=== PATIENT | female | born 1990 | race Caucasian/White ===

== ENCOUNTER 2021-07-19 15:35 | Emergency (ER) | payer OTHER ==
--- OUTSIDE RECORDS SUMMARY | 2021-07-19 15:39 | XMS REPORT | Continuity of Care Document ---
:1990 Author Organization [facility] t Address [address] [place] [address] Dr. Lang [address] [place] [address] Care Team Providers Name Role Phone Unavailable Unavailable Unavailable Problems This patient has no known problems. Allergies, Adverse Reactions, Alerts This patient has no known allergies or adverse reactions. Medications This patient has no known medications. Procedures This patient has no known procedures. Encounters Start End Encounter Admission Attending Care Care Encounter Source Date/Time Date/Time Type Type Clinicians Facility Department ID 2021-07-14 Outpatient [facility] [id number] NE 11:28:09 [id number] Health Results This patient has no known results.
[2021-07-19 16:49] LABS: Absolute Lymphocytes (CBC) 2.3 K/uL (0.7-4.9); Hematocrit 44.9 % (36.0-45.0); Lymphocytes % 17.5 % (15.3-44.8); MPV 9.1 fL (7.6-11.3); RBC Red Blood Cell Count 5.02 M/uL (3.86-4.86)
[2021-07-19 16:53] LABS: Albumin 4.1 g/dL (3.4-5.0); Bilirubin Total 0.4 mg/dL (0.2-1.0); Potassium 3.6 mmol/L (3.5-5.1); Protein, Total 7.7 g/dL (6.4-8.2)
[2021-07-19 17:00] LABS: Urine Bacteria 20-50 /HPF (<20); Urine RBC 20-50 /HPF (NONE SEEN)
--- NOTE | 2021-07-19 17:11 | RAD REPORT ---
EXAM DESCRIPTION: CT - Stone Protocol - 07/19/2021 5:02 pm CLINICAL HISTORY: Flank pain. hematuria, right flank pain COMPARISON: No comparisons TECHNIQUE: Axial images were obtained without oral or IV contrast. Lack of contrast limits solid org an and vascular assessment. The [id number] spans the entirety of the system partially obscuring uppermost abdomen and lung bases. Coronal reformatted images were obtained and reviewed. All CT scans are performed using dose optimization technique as appropriate and may include automated exposure control or mA/KV adjustment according to patient size. FINDINGS: The lower lung sarah are clear. Imaged portions of the liver and spleen show no suspicious findings on non-contrast imaging. The panc reas and adrenal glands are normal. No pathologic lymphadenopathy in the abdomen or pelvis. No urinary tract stones or obstructive uropathy. No bowel obstruction, free air, free fluid or abscess. Normal appendix noted. No significant bony abnormality. 3 cm left ovarian follicle. IMPRESSION: No urinary tract stones or obstructive uropathy.
[2021-07-19] MEDS ORDERED: CEFTRIAXONE 1000 MG/VIAL ONE (17:54)
[2021-07-19] MEDS ORDERED: KETOROLAC 30 MG/ML INJ ONE (17:54)
[2021-07-19] MEDS ORDERED: LIDOCAINE 4% PATCH ONE (17:54)
--- NOTE | 2021-07-19 18:00 | EDPHYS ---
Physician Documentation [facility] Name: Ai Hernandez Age: 31 yrs Sex: Female : 1990 Arrival Date: 07/19/2021 Time: 15:40 Bed 10 Private MD: ED Physician Ezequiel Bowie HPI: 07/19 16:30 This 31 yrs old Female presents to ER via Ambulatory with complaints of Urinary Problem.cp 16:30 The patient complains of pain in the right mid/low back. The pain radiates to the back cp of right leg down to knee. 16:30 Onset: The symptoms/episode began/occurred 2 day(s) ago. Associated signs and symptoms: cp Pertinent positives: noticed blood in urine since 2 this morning, Pertinent negatives: diarrhea, dysuria, fever, vomiting. Severity of pain: in the emergency department the pain is unchanged despite home interventions. 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 - Social history:: Smoking status: Patient denies any tobacco usage or history of. Patient/guardian denies using alcohol, street drugs. ROS: 16:35 Constitutional: Negative for body aches, chills, fever, poor PO intake. cp 16:35 Eyes: Negative for injury, pain, redness, and discharge. cp 16:35 Neck: Negative for pain with movement, pain at rest, stiffness, tenderness, bony tenderness. 16:35 Cardiovascular: Negative for chest pain, palpitations. 16:35 Respiratory: Negative for cough, shortness of breath, wheezing. 16:35 Abdomen/GI: Negative for abdominal pain, nausea, vomiting, and diarrhea, constipation, bowel incontinence. 16:35 Back: Positive for pain at rest, pain with movement, of the right mid and right low back, Negative for injury or acute deformity. 16:35 : Positive for hematuria, Negative for urinary frequency, pelvic pain, vaginal bleeding. 16:35 Skin: Negative for rash. 16:35 Neuro: Negative for altered mental status, headache, numbness, weakness. 16:35 All other systems are negative. Exam: 16:40 Constitutional: The patient appears in no acute distress, alert, awake, non-toxic, well cp developed, well nourished, uncomfortable. 16:40 Head/Face: Normocephalic, atraumatic. cp 16:40 Neck: ROM/movement: is normal, is supple, without pain, no range of motions limitations. 16:40 Chest/axilla: Inspection: normal. 16:40 Cardiovascular: Rate: normal, Rhythm: regular. 16:40 Respiratory: the patient does not display signs of respiratory distress, Respirations: normal, no use of accessory muscles, no retractions, labored breathing, is not present, Breath sounds: are clear throughout, no decreased breath sounds, no stridor, no wheezing. 16:40 Abdomen/GI: Inspection: abdomen appears normal, Bowel sounds: active, all quadrants, Palpation: abdomen is soft and non-tender, in all quadrants. 16:40 Back: pain, that is moderate, of the right mid back and right low back, ROM is painful, with all movement, Straight leg raises: of both lower extremities does not illicit pain. 16:40 Neuro: Motor: moves all fours, strength is normal, Sensation: is normal, Deep tendon reflexes are 2+ (normal) in the right patellar, right Achilles, left patellar and left Achilles. Vital Signs: 16:03 BP 112 / 85; Pulse 100; Resp 16; Temp 99.1(O); Pulse Ox 99% on R/A; Weight 57.15 kg jb4 (R); Height 5 ft. 1 in. (154.94 cm) (R); Pain 3/10; 16:03 Body Mass Index 23.81 (57.15 kg, 154.94 cm) jb4 MDM: 17:00 Differential diagnosis: nephrolithiasis, pyelonephritis, UTI, sciatica, bulging disc, cp spinal stenosis. 17:22 Patient medically screened. cp 17:59 Data reviewed: vital signs, nurses notes, lab test result(s), radiologic studies, CT cp scan. 17:59 Counseling: I had a detailed discussion with the patient and/or guardian regarding: the cp historical points, exam findings, and any diagnostic results supporting the discharge/admit diagnosis, lab results, radiology results, the need for outpatient follow up, a family practitioner, to return to the emergency department if symptoms worsen or persist or if there are any questions or concerns that arise at home. Response to treatment: the patient's symptoms have mildly improved after treatment, and as a result, I will discharge patient. 07/19 16:20 Order name: Urine Microscopic Only; Complete Time: 17:37 cp 07/19 17:37 Interpretation: Normal except: UWBC 20-50; URBC 20-50; UBACT 20-50; SQEPI 5-10. cp 07/19 16:20 Order name: CBC with Diff; Complete Time: 17:37 cp 07/19 16:20 Order name: CMP; Complete Time: 17:37 cp 07/19 16:20 Order name: Lipase; Complete Time: 17:37 cp 07/19 17:03 Order name: Urine Culture EDMS 07/19 16:20 Order name: Urine Dipstick-Ancillary (obtain specimen); Complete Time: 16:53 cp 07/19 16:20 Order name: Urine Test (obtain specimen); Complete Time: 16:53 cp 07/19 16:20 Order name: IV Saline Lock; Complete Time: 17:08 cp 07/19 16:20 Order name: Labs collected and sent; Complete Time: 17:08 cp 07/19 16:20 Order name: CT Stone Protocol; Complete Time: 17:37 cp Administered Medications: 17:56 Drug: Ketorolac 15 mg Route: IVP; Site: right antecubital; iw 18:15 Follow up: Response: No adverse reaction aa5 17:56 Drug: Rocephin (cefTRIAXone) 1 grams Route: IV; Rate: calculated rate; Site: right iw antecubital; 18:15 Follow up: Response: No adverse reaction; IV Status: Completed infusion aa5 17:57 Drug: Lidoderm Patch 5 % (700 mg/patch) 1 patches Route: Topical; Site: affected area; iw Disposition: 18:49 Co-signature as Attending Physician, Ezequiel Bowie MD. rn Disposition Summary: 07/19/21 17:59 Discharge Ordered Location: Home cp Problem: new cp Symptoms: have improved cp Condition: Stable cp Diagnosis - Sciatica, right side cp - UTI/ Urinary tract infection, site not specified cp Followup: cp - With: Private Physician - When: 2 - 3 days - Reason: Worsening of condition Discharge Instructions: - Discharge Summary Sheet cp - Sciatica cp - Urinary Tract Infection, Adult cp Forms: - Medication Reconciliation Form cp - Thank You Letter cp - Antibiotic Education cp - Prescription Opioid Use cp Prescriptions: - Lidoderm 5 % Topical adhesive patch,medicated - apply 1 patch by TOPICAL route once daily; 20 patch; Refills: 0, Product cp Selection Permitted - Ibuprofen 600 mg Oral Tablet - take 1 tablet by ORAL route every 8 hours As needed take with food; 30 tablet; cp Refills: 0, Product Selection Permitted - Cyclobenzaprine 10 mg Oral Tablet - take 1 tablet by ORAL route every 8 hours As needed; 20 tablet; Refills: 0, cp Product Selection Permitted - Bactrim DS 800-160 mg Oral Tablet - take 1 tablet by ORAL route every 12 hours for 7 days; 14 tablet; Refills: 0, cp Product Selection Permitted Signatures: Dispatcher [employer] Lori Peacock RN RN iw Nieto, Roman, MD MD rn Page, Corey, PA PA cp Sudarshan Hull RN RN jb4 Jeanne Schneider RN aa5 Corrections: (The following items were deleted from the chart) 16:45 16:38 URINALYSIS+U.LAB.BRZ ordered. EDNY EDMS
--- NOTE | 2021-07-19 18:00 | ER ---
Nurse's Notes [facility] Name: Ai Hernandez Age: 31 yrs Sex: Female : 1990 Arrival Date: 07/19/2021 Time: 15:40 Bed 10 Private MD: Diagnosis: Sciatica, right side;UTI/ Urinary tract infection, site not specified Presentation: 07/19 16:03 Chief complaint: Patient states: At 2 pm I started urinating blood with clots. I am jb4 having right thigh pain that started 2 days ago along with right lower back pain. Coronavirus screen: At this time, the client does not indicate any symptoms associated with coronavirus-19. Ebola Screen: No symptoms or risks identified at this time. Initial Sepsis Screen: Does the patient meet any 2 criteria? HR > 90 bpm. Yes Does the patient have a suspected source of infection? No. Patient's initial sepsis screen is negative. Risk Assessment: Do you want to hurt yourself or someone else? Patient reports no desire to harm self or others. Onset of symptoms was July 19, 2021. Transition of care: patient was not received from another setting of care. 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 - Social history:: Smoking status: Patient denies any tobacco usage or history of. Patient/guardian denies using alcohol, street drugs. Screenin:57 Abuse screen: Denies threats or abuse. Denies injuries from another. Nutritional iw screening: No deficits noted. Tuberculosis screening: No symptoms or risk factors identified. Fall Risk None identified. Assessment: 17:57 Reassessment: Patient appears in no apparent distress at this time. Patient and/or iw family updated on plan of care and expected duration. Pain level reassessed. Patient is alert, oriented x 3, equal unlabored respirations, skin warm/dry/pink. Patient states symptoms have improved. 18:15 Reassessment: Patient is alert, oriented x 3, equal unlabored respirations, skin aa5 warm/dry/pink. Vital Signs: 16:03 BP 112 / 85; Pulse 100; Resp 16; Temp 99.1(O); Pulse Ox 99% on R/A; Weight 57.15 kg jb4 (R); Height 5 ft. 1 in. (154.94 cm) (R); Pain 3/10; 16:03 Body Mass Index 23.81 (57.15 kg, 154.94 cm) jb4 ED Course: 15:40 Patient arrived in ED. mr 16:02 Roger Flores PA is PHCP. cp 16:02 Ezequiel Bowie MD is Attending Physician. cp 16:08 Triage completed. jb4 16:08 Arm band placed on right wrist. jb4 17:04 CT Stone Protocol In Process Unspecified. EDMS 18:15 Lori Oscar, RN is Primary Nurse. iw 18:15 No provider procedures requiring assistance completed. Patient did not have IV access aa5 during this emergency room visit. Administered Medications: 17:56 Drug: Ketorolac 15 mg Route: IVP; Site: right antecubital; iw 18:15 Follow up: Response: No adverse reaction aa5 17:56 Drug: Rocephin (cefTRIAXone) 1 grams Route: IV; Rate: calculated rate; Site: right iw antecubital; 18:15 Follow up: Response: No adverse reaction; IV Status: Completed infusion aa5 17:57 Drug: Lidoderm Patch 5 % (700 mg/patch) 1 patches Route: Topical; Site: affected area; iw Outcome: 17:59 Discharge ordered by MD. cp 18:15 Discharged to home ambulatory. aa5 18:15 Condition: stable 18:15 Discharge instructions given to patient, Instructed on discharge instructions, follow up and referral plans. medication usage, Demonstrated understanding of instructions, follow-up care, medications, Prescriptions given X 4. 18:20 Patient left the ED. aa5 Addendum: 07/22/2021 11:54 Addendum: Culture Results: Positive urine culture. Bacteria is resistant to, has a a5 intermediate sensitivity, or is not tested against prescribed antibiotics. Report given to PENNY for further evaluation and then to internal communications manager for follow up with patient. Prescription called-in to pharmacy of choice. to [facility] pharmacy in [place]. Called in Macrobid 100mg PO BID x 7 days per BRIJESH Lemus. Signatures: Dispatcher [employer] Eva Guzman Irene, RN RN iw Jeanne Schneider, RN RN aa5 Roger Flores PA PA cp Bryson, James, RN RN jb4
[2021-07-19 19:16] VITALS: BP 112/85; TEMP 99.1; O2SAT 99
== END 2021-07-19 18:20 | disposition home or self-care (01) ==
LOC: ER 15:35
DX: N39.0 Urinary tract infection, site not specified (principal); M54.31 Sciatica, right side; F41.9 Anxiety disorder, unspecified
CPT/HCPCS: 96365; 87088; 85025; 87086; 36415; 87077; 87186; 81015; 83690; 80053; 76377; 74176; 96375; 99283; J2001